=== PATIENT | male | born 1970 | race Caucasian/White ===

== ENCOUNTER 2020-06-06 07:28 | Outpatient (CLI) | payer SELFPAY ==
[2020-06-05 10:54] VITALS: BMI 25.8
--- NOTE | 2020-06-05 10:54 | ECG_ITS ---
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 Interpretive Statements NAME OF STUDY: EXERCISE SESTAMIBI STRESS TEST INDICATION: Chest Pain, PROCEDURE: The baseline electrocardiogram showed normal sinus rhythm with normal ST-Ts. At the baseline, the patient's blood pressure was 152/102 mm Hg with a heart rate of 74. The patient exercised for 10 minutes and 32 seconds on a standard Genaro protocol. Patient attained a maximum heart rate of 165 beats per minute(95% of the maximum predicted heart rate) with a blood pressure at the peak exercise of 183/88 mm Hg. The EKG at the peak exercise revealed [address] depression in leads V4 and V5. Patient did not have any chest pain or any significant arrhythmis with the exercise Sestamibi was injected 1 minute prior to the peak exercise. Patient was complaining of some shortness of breath, with exercise During the recovery phase, there were no new changes. Shortness of breath improved during the recovery Blood pressure at the end of the recovery phase was 162/110 mm Hg with a heart rate of 98 per minute. CONCLUSION: 1. Borderline abnormal EKG response to treadmill exercise, may suggest ischemia in the distribution of the left anterior descending artery. 2. No exercise-induced chest pain or cardiac arrhythmia 3. Good exercise tolerance, attained a maximum of 13.5 METs 4. Sestamibi/Sestamibi perfusion results pending; see separate report. Electronically Signed On 06-08-2020 8:51:33 CDT by Aarti Amin M.D. [id number]
--- NOTE | 2020-06-05 10:55 | NMCV_ITS ---
NM jesu perf SPECT r/s* [id number] Krystian Lunsford Age: 49 Gender: M : 1970 Exam Date: 06/05/2020 11:50 Ordering Phys: Suellen Pollock MD Technologist: CAROLYNE Morse Exam Location: [facility] Indications: LEFT SIDED CHEST PAIN STRESS TEST Please see separate stress test report in [facility] for full findings IMAGE PROTOCOL Rest/Stress 2 Exercise Day Radiopharmaceutical Dose (mCi) Administration Site Administered by Rest: Tc-99m 11.0 IV CAROLYNE Akers Sestamibi Stress:Tc-99m 28.7 IV CAROLYNE Morse Sestamijohn Rest: 05-Jun-2020 60 Discovery 630 Stress: 06-Jun-2020 30 Discovery 630 Radiopharmaceutical was injected at 87 % maximum heart rate. Images obtained in supine and prone position. SPECT RESULTS Technical Quality: Excellent Raw Data Analysis: Normal Image Corrections: No attenuation or motion correction applied Summed Stress Score: 0 Summed Rest Score: 0 Summed Difference Score: 0 PERFUSION FINDINGS SPECT images demonstrate homogeneous tracer distribution throughout the myocardium. FUNCTIONAL RESULTS (calculated via Gated SPECT) Stress Image LV EF (%): 81 Stress EDV (mL):102 TID: 0.87 Stress ESV (mL):19 FUNCTIONAL FINDINGS: Segmental wall motion analysis revealing no gross wall motion normalities. IMPRESSIONS 1. Unremarkable myocardial perfusion imaging 2. Normal LV ejection fraction of 81%. 3. LV wall motion analysis revealing no gross wall motion abnormalities. 4. Normal LV volume. Low probability for coronary ischemia, based on the above findings Dr Aarti Amin MD FACC (Electronically Signed) Final Date: 06 June 2020 17:11 S
[2020-06-06 07:30] VITALS: BMI 25.8
--- NOTE | 2020-06-06 07:30 | PC.NURSE ---
A 22G PIV WAS STARTED X 1 ATTEMPT TO THE RIGHT AC. PATIENT TOLERATED WELL. IT WAS FLUSHED WITH NS AND COVERED WITH A TIME/DATED VENAGARD.
--- NOTE | 2020-06-06 08:09 | PC.NURSE ---
THE 22 PIV TOTHE RIGHT AC WAS DISCONTINUED WITH CATH TIP INTACT. PATIENT TOLERATED WELL.
[2020-06-06 08:11] VITALS: BP 162/91; PULSE 87
== END 2020-06-06 07:29 | disposition home or self-care (01) ==
PROVIDERS: PCP Family Medicine; Visit Provider Family Medicine
DX: R07.9 Chest pain, unspecified (principal)
CPT/HCPCS: 78452; 93017; A9500

== ENCOUNTER 2020-08-07 12:09 | Outpatient (CLI) | payer SELFPAY ==
--- NOTE | 2020-08-07 12:45 | USCV_ITS ---
Krystian Lunsford Age: 49 Gender: M : 1970 Exam Date: 08/07/2020 12:50 Ordering Phys: Aarti Amin MD ([email or web address]) Technologist: Steve Yanez Exam Location: [facility] [place] Indication: SOB BP: 145 / 85 HR: 62 Rhythm: Sinus Technical Quality: Good MEASUREMENTS (Male / Female) Normal Values 2D ECHO LV Diastolic Diameter PLAX 3.5 cm 4.2 - 5.9 / 3.9 - 5.3 cm LV Systolic Diameter PLAX 2.2 cm IVS Diastolic Thickness 1.2 cm 0.6 - 1.0 / 0.6 - 0.9 cm IVS Systolic Thickness 1.5 cm LVPW Diastolic Thickness 1.2 cm 0.6 - 1.0 / 0.6 - 0.9 cm LVPW Systolic Thickness 1.2 cm LVOT Diameter 2.0 cm LV Ejection Fraction 2D Teich 69.2 % LV Ejection Fraction MOD 2C 73.6 % LV Ejection Fraction 2C AL 75.3 % LA Diameter 3.8 cm LA Width 3.9 cm LA Height 4.7 cm RA Width 3.9 cm RA Height 5.1 cm Aorta at Sinotubular Diameter 2.8 cm M-MODE LV Diastolic Diameter MM 5.6 cm 4.2 - 5.9 / 3.9 - 5.3 cm LV Systolic Diameter MM 4.0 cm LV Ejection Fraction MM Teich 52.7 % IVS Diastolic Thickness MM 1.0 cm 0.6 - 1.0 / 0.6 - 0.9 cm IVS Systolic Thickness MM 1.1 cm LVPW Diastolic Thickness MM 1.2 cm 0.6 - 1.0 / 0.6 - 0.9 cm LVPW Systolic Thickness MM 1.4 cm RV Diastolic Diameter MM 1.4 cm Aortic Annulus Diameter 3.6 cm LA Ao Ratio MM 1.1 MV E Point Septal Separation 0.5 cm DOPPLER AV Peak Velocity 157.0 cm/s LVOT Peak Velocity 119.0 cm/s AV Area Cont Eq vti 2.3 cm squared AV Area Cont Eq pk 2.4 cm squared MV Area PHT 5.0 cm squared Mitral E to A Ratio 1.0 MV E' Velocity 48.5 cm/s Mitral E to MV E' Ratio 7.9 Mitral E to LV E' Lateral Ratio 6.4 Mitral E to LV E' Septal Ratio 10.2 TR Peak Velocity 201.3 cm/s TR Peak Gradient 16.2 mmHg Right Atrial Pressure 3.0 mmHg Pulmonary Artery Systolic Pressu 19.2 mmHg FINDINGS Left Ventricle Normal left ventricular size and systolic function, EF 69 %. No regional wall motion abnormalities. Mild left ventricular hypertrophy. Right Ventricle The right ventricle is normal in size and function. Right Atrium The right atrium is normal in size. Left Atrium The left atrium is normal in size. Mitral Valve No gross abnormalities noted Aortic Valve Thickened aortic valve. Tricuspid Valve Trace tricuspid valve regurgitation. Pulmonic Valve Trace pulmonary valve regurgitation. Pericardium Normal pericardium without effusion. Aorta Normal aortic annulus size. CONCLUSIONS Normal left ventricular size and systolic function, EF 69 %. No regional wall motion abnormalities. Mild left ventricular hypertrophy. Thickened aortic valve. Trace tricuspid valve regurgitation. Trace pulmonary valve regurgitation. There is no pericardial effusion. There are no intracardiac masses. No previous study is available for comparison. Dr Aarti Amin MD FACC (Electronically Signed) Final Date: 07 August 2020 15:36 S
== END 2020-08-07 12:10 | disposition home or self-care (01) ==
PROVIDERS: PCP Family Medicine; Visit Provider Internal Medicine Cardiovascular Disease
DX: R07.89 Other chest pain (principal); R06.02 Shortness of breath; I35.1 Nonrheumatic aortic (valve) insufficiency; I07.1 Rheumatic tricuspid insufficiency; I37.1 Nonrheumatic pulmonary valve insufficiency
CPT/HCPCS: 93306

== ENCOUNTER → 2021-10-04 08:25 | Outpatient (BNVA) | payer SELFPAY | PROVIDERS: PCP Family Medicine; Visit Provider Internal Medicine Cardiovascular Disease | DX: E78.2 Mixed hyperlipidemia (principal); E78.5 Hyperlipidemia, unspecified | CPT/HCPCS: 80061 ==

== ENCOUNTER 2022-04-03 12:19 | Emergency (ER) | payer SELFPAY ==
--- NOTE | 2022-04-03 12:23 | XRR_ITS ---
PROCEDURE INFORMATION: Exam: XR Chest Exam date and time: 04/03/2022 12:38 PM Age: 51 years old Clinical indication: Chest pressure; Patient HX: 51-year-old male presents emergency room with complaint of chest pain. Its been going on for his last 9-10 months he states of the last 2 months its gotten little bit worse TECHNIQUE: Imaging protocol: Radiologic exam of the chest. Views: 1 view. COMPARISON: CR XR chest 2V* [id number] 05/08/2020 3:44 PM FINDINGS: Lungs: Unremarkable. No consolidation. Pleural spaces: Unremarkable. No pleural effusion. No pneumothorax. Heart/Mediastinum: Unremarkable. No cardiomegaly. Bones/joints: Unremarkable. XR/XR chest 1V portable [id number] IMPRESSION: No acute findings.
[2022-04-03 12:24] VITALS: BP 162/99; PULSE 69; RESP 16; TEMP 36.4; O2SAT 96
--- NOTE | 2022-04-03 12:26 | W.ED.CHESTPA ---
HPI - Chest Pain General: Chief Complaint: Chest Pain Stated Complaint: CHEST PAIN Time Seen by Provider: 04/03/22 12:22 Source: patient Mode of arrival: ambulatory Limitations: no limitations History of Present Illness: 51-year-old male presents emergency room with complaint of chest pain. Its been going on for his last 9-10 months he states of the last 2 months its gotten little bit worse he has seen cardiology and had a full work-up including a stress test which was normal. This was done in June 06. He has had a couple of visits since then most of which likely related to chest pain. He has not noticed anything that makes it better or worse. He has not had any associated shortness of breath no radiation of discomfort. He is not noticed that activity or rest either exacerbates or relieves his discomfort. He is not having any chest pain at this time. Patient states he came into the ER to get evaluated because he had looks to make an appointment with his primary care doctor and was told it was 2 weeks and did not want to wait the 2 weeks. MD complaint: chest pain Timing of current episode: episodic Prior episodes: Yes Onset: during rest and during exertion Pain location: left chest Pain radiation: none Severity: mild Quality: aching and heaviness Relieving factors: nothing Exacerbating factors: nothing Associated symptoms: Deny abdominal pain, diaphoresis, dyspnea, fever(s), leg edema, nausea, palpitations, sense of impending doom, syncope or vomiting Treatment prior to arrival: none Review of Systems Const: Denies: fever(s), chills, fatigue, malaise or diaphoresis ENMT: Denies: throat pain, ear or mastoid pain, nasal discharge or nasal congestion Card: Reports: chest pain; Denies: palpitations, irregular heart rhythm, edema or syncope Resp: Denies: dyspnea GI: Denies: abdominal pain, nausea or vomiting : Denies: flank pain, dysuria, urinary frequency or urinary urgency Musc: Denies: neck pain or back pain Skin/Breast: Denies: rash or pruritus PFSH ED PFSH: Medical History Atypical chest pain The EKG from May of this year revealed a normal sinus rhythm with a normal ST-T's. Gastritis GERD (gastroesophageal reflux disease) Hyperlipidemia Hypertension Surgical History History of appendectomy Hx of tonsillectomy Family History Other CAD (coronary artery disease) Chronic kidney disease (CKD) Dementia Diabetes Family history of premature coronary artery disease Hyperlipidemia Hypertension Lung disease Stroke Denies family history of Psychiatric illness Cancer Social History Smoking and tobacco status: never smoked Alcohol intake: current Alcohol intake frequency: 0-2 Drinks per Day Alcohol type: beer Physical Exam Const: COMMON NORMALS: no acute distress GENERAL APPEARANCE: cooperative and comfortable ORIENTATION/CONSCIOUSNESS: Yes awake, Yes oriented to person, Yes oriented to place and Yes oriented to time HENMT: COMMON NORMALS: normocephalic, atraumatic and hearing grossly normal bilaterally HEAD & SCALP: normocephalic and atraumatic Resp: COMMON NORMALS: normal respiratory effort, No retractions, No use of accessory muscles and clear to auscultation bilaterally AUSCULTATION: clear to auscultation bilaterally Cardio: COMMON NORMALS: regular rate, regular rhythm and No murmurs present (Cardio) RATE: regular rate RHYTHM: regular rhythm GI: COMMON NORMALS: Soft to palpation and No hepatosplenomegaly present AUSCULTATION: Yes normoactive bowel sounds PALPATION: Yes Soft to palpation, No Tenderness to palpation present (GI), No Guarding due to palpation present (GI) and Yes No hepatosplenomegaly present : COMMON NORMALS: Yes no CVA tenderness BLADDER/KIDNEY EXAM: Yes no CVA tenderness Back/Pelvis: COMMON NORMALS: no CVA tenderness Extremity: COMMON NORMALS: normal to inspection, capillary refill normal, no clubbing, cyanosis or edema, no calf tenderness and no pedal edema Neuro: SENSORIUM/ORIENTATION: Yes oriented to person, Yes oriented to place and Yes oriented to time Skin: COMMON NORMALS: no rashes or lesions noted GENERAL SKIN EXAM: no rashes or lesions noted Course Vital Signs: Vital signs: Vital Signs Temperature 97.6 F 04/03/22 12:24 Pulse Rate 68 04/03/22 13:04 Respiratory Rate 16 04/03/22 12:24 Blood Pressure 153/105 04/03/22 13:04 Pulse Oximetry 96 04/03/22 13:04 Oxygen Delivery Me thod 04/03/22 12:43 MDM - Chest Pain Medical Decision Making Exam unremarkable EKG is normal sinus rhythm no acute changes noted. Discussed with the patient we can check some basic labs but he is already had fairly extensive work-up for the symptoms been ongoing for a while is probably not a lot different we would do make sure that there is no significant changes any of his lab work or abnormalities on chest x-ray if those are all normal we will refer him back to his primary care doctor. Patient ultimately declined any further evaluation including lab work. He is welcome to return if he has worsening symptoms. Medical Records I reviewed the patient's medical records. Lab Data I reviewed the patient's lab results. Radiology Impressions Chest X-Ray 04/03/22 12:23 IMPRESSION: No acute findings. Discharge Plan Discharge Patient Disposition: Home Clinical Impression: Atypical chest pain, Hypertension, Hyperlipidemia Condition: Stable Prescriptions: No Action omeprazole 20 mg capsule,delayed release(DR/EC) 20 mg PO DAILY nitroglycerin 0.4 mg tablet, sublingual 0.4 mg sublingual Q5M PRN (Reason: chest pain) 30 Days Qty: 30 3RF Rx Instructions: until response; do not exceed 3 doses per episode atorvastatin [Lipitor] 20 mg tablet 20 mg PO DAILY Qty: 90 3RF metoprolol tartrate 25 mg tablet 12.5 mg PO Q12H Qty: 90 3RF omega-3 fatty acids 1,000 mg capsule 2,000 mg PO DAILY Qty: 90 3RF lisinopril 40 mg tablet 40 mg PO DAILY Qty: 90 3RF Metamucil 0.4 gram Capsule 0.4 g PO DAILY Discharge Orders: Discharge ED (Routine); Ordered 04/03/22 Ordered By: Osman Billy Referrals: Suellen Pollock MD [Primary Care Provider] - Patient Instructions: Opioid Safety Activity Restrictions/Additional Instructions: Increase your Prilosec to 1 twice daily. Follow-up with Dr. Aimn to reevaluate blood pressure and your primary care doctor within the next week. Coding Level of Care Code ED Feller Operator for Chg Fwd Exam Comprehensive
--- NOTE | 2022-04-03 12:32 | ECG_ITS ---
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 Measurements Intervals [place] Rate: 63 P: 8 WI: 160 QRS: 11 QRSD: 94 T: 43 QT: 371 QTc: 381 Interpretive Statements SINUS RHYTHM No previous ECG available for comparison Electronically Signed On 04-03-2022 17:17:07 CDT by Raimundo Cedeno M.D. [id number]
[2022-04-03 12:43] VITALS: BP 149/107; PULSE 68; O2SAT 94
[2022-04-03 13:04] VITALS: BP 153/105; PULSE 68; O2SAT 96
--- NOTE | 2022-04-03 13:05 | PC.NURSE ---
Pt refused IV and blood work stating, I will go to my doctor and get it done there. Dr Billy notified and cleared to let him be discharged and follow up with the primary doctor within the week to get the blood work done. Pt vital signs stable and no obvious distress from patient upon discharge.
== END 2022-04-03 13:02 | disposition home or self-care (01) ==
PROVIDERS: Emergency Provider Family Medicine; PCP Family Medicine
DX: R07.89 Other chest pain (principal); I10 Essential (primary) hypertension; E78.5 Hyperlipidemia, unspecified
CPT/HCPCS: 71045; 93005; 99285

== ENCOUNTER 2022-10-28 09:30 | Outpatient (CLI) | payer SELFPAY ==
[2022-10-28 10:56] LABS: Chol HDL Ratio 4.51 mg/dL (1.0-5.00); Cholesterol 185 mg/dL (0-200); HDL Cholesterol 41 mg/dL (60-100); LDL Cholesterol Calculated 72 mg/dL (50-129); LDL HDL Ratio 1.76 RATIO (0.00-3.22); Triglycerides 361 mg/dL (0-150)
== END 2022-10-28 09:31 | disposition home or self-care (01) ==
PROVIDERS: PCP Family Medicine; Visit Provider Internal Medicine Cardiovascular Disease
DX: E78.5 Hyperlipidemia, unspecified (principal)
CPT/HCPCS: 36415; 80061